=== PATIENT | male | born 1985 | race Caucasian/White ===

== ENCOUNTER 2017-02-06 19:58 | Emergency (ER) | payer OTHER ==
[2017-02-06] MEDS ORDERED: LORazepam 2 MG/ML DISP.SYRIN IV ONE (20:08)
[2017-02-06] MEDS ORDERED: LORazepam 2 MG/ML DISP.SYRIN ONE (20:08)
[2017-02-06] MEDS ORDERED: NORMAL SALINE 1,000 ML IV ONE ×2 (20:18→21:49)
[2017-02-06 20:21] LABS: Hematocrit 43.4 % (42.0-52.0); Hemoglobin 15.4 gm/dL (13.5-18.0); Mean Cell Volume 80.4 fl (78-100); Mean Corpuscular Hemoglobin 28.5 pg (27-31); Mean Corpuscular Hgb Conc 35.5 g/dl (32-36); Mean Platelet Volume 9.1 fl (6.0-9.5); Neutrophil # 9.5 K/mm3 (1.3-6.0); Neutrophil % 69.5 % (42-75.0); Platelet Count 381 K/mm3 (150-450); Red Cell Distribution Width 11.2 % (11.5-14.0); White Blood Count 13.7 K/mm3 (4.0-10.5)
--- NOTE | 2017-02-06 20:33 | ERNOTE ---
Psychological HPI - General Chief Complaint: Drug Overdose Source: Reports: patient, family, RN notes reviewed Exam Limitations: Reports: clinical condition - Immun/Allergies/Home Medications Allergies/Adverse Reactions: Allergies Penicillins Allergy (Verified 02/06/17 20:00) Home Medications: HOME MEDICATIONS NK [No Home Medication] 02/06/17 [Last Taken Unknown] - History of Present Illness Narrative: Patient states that he uses meth regularly, got a new batch yesterday from a different dealer, and has used it multiple times, like 7 times today so far. He is experiencing intense back pain and lower extremity pain. He is tachycardic, tachypneic and very restless. He was brought here by his father. Time Seen by Provider: 02/06/17 20:03 Arrived by: Reports: private car, called by spouse/family Onset/duration: Reports: constant Mechanism: Reports: overdose Situational Problems: Reports: other - drug abuse Associated Symptoms: Reports: other - pain Review of Systems - Review of Systems Constitutional: Absent: recent illness, fever, chills EYE: Present: no symptoms reported ENT: Absent: ear pain, sore throat Respiratory: Absent: shortness of breath, cough Gastrointestinal/Abdominal: Absent: nausea, vomiting, diarrhea, abdominal pain Genitourinary: Present: no symptoms reported Musculoskeletal: Present: back pain, muscle pain, muscle stiffness Skin: Present: no symptoms reported Neurological: Present: no symptoms reported Endocrine: Present: no symptoms reported Hematologic/Lymphatic: Present: no symptoms reported Psych: Present: anxiety, depressed - Patient's Past Medical History Patient History - Medical: No pertinent hx, Other - Methamphetamine abuse, marijuana abuse Patient History - Cardiac/Respiratory: No pertinent hx Patient History - Cancer: No Hx of Cancer Patient History - Surgical Procedures: No surgical history Patient History - Other: None - Social History Living Situations: other - left a long-term house, on the run from the police Abuse History: Hx of Substance Use Smoking Status: Current every day smoker - Immunizations Immunizations Up to Date: - unknown Psychological Exam - Exam General Appearance: Present: wd/wn, severe distress, anxious Head Exam: Present: normal inspection, no evidence of injury Neurological: Present: alert, responds to pain, agitated, anxious Thoughts/Hallucinations: Present: normal thought pattern, no apparent hallucination Behavior/Eye Contact/Speech: Present: cooperative Eye Exam: Normal inspection: bilateral, PERRL: bilateral, EOMI: bilateral Ears, Nose, Throat: Present: normal ENT inspection, normal pharynx Neck: Present: normal inspection, nontender Respiratory: Present: no respiratory distress, normal breath sounds, no accessory muscle use, chest nontender, lungs clear Cardiovascular/Chest: Present: tachycardia Gastrointestinal/Abdominal: Present: normal bowel sounds, nontender, nondistended, soft Male Genitals Exam: Present: normal genitalia Back Exam: Present: normal range of motion Extremity Exam: Present: normal inspection, normal range of motion Skin Exam: Present: normal color, warm/dry ED Progress - Results and Orders Patient's Lab Results:: I have reviewed the patient's lab results. Results and Orders: Lactic acid 6.1, WBC 13.7 23:40. Repeat Lactic acid is 0.8. - Vital Signs Patient's Vital Signs:: I have reviewed the patient's vital signs. Vital Signs: Vital Signs 02/06/17 20:00 Temperature 37.1 C Pulse Rate 147 H Respiratory 30 H Rate Blood Pressure 135/119 - EKG EKG: supraventricular tachycardia EKG read: Interp. by me - X-Ray X-Ray #1 X-Ray: chest Interpretation: Interp. by me X-ray Comments: Mild-moderate hyperexpansion, no cardiomegaly, no infiltrates noted. - Progress/Reassessment Chief Complaint: Drug Overdose Progress:: Improved Progress Note-Subjective: 02/06/17 23:41 Police are here waiting for the patient to be cleared. Second lactic acid is 0.8 , blood pressure is good. Patient still restless, but is coming down off of meth. He is able to hold an intelligent conversation. There is a warrant for his arrest, so going with the police is not an "option". I discussed with the patient that he would be going with the police, he verbalized that he thought that was what was going to happen. Plan - Plan Plan: Patient's father is here, he called the police to have them come poultry picking machine tender the patient on release from this ED. Police are here now, will be here until we can release the patient. Departure Clinical Impression: Methamphetamine abuse - Departure Disposition: Long Term Condition: Stable Instructions: Finding Treatment for Addiction, Stimulant Use Disorder- Methamphetamines Additional Instructions: in 3-5 days. Or see the physician/provider for the group home. Referrals: Family Practice [Provider Group]
[2017-02-06 20:38] LABS: ALT 45 U/L (19-67); AST 103 U/L (0-48); Albumin * 4.5 gm/dl (3.4-5.0); Alkaline Phosphatase * 77 U/L (50-170); Anion Gap 20.8 mmol/L (6.8-13.8); BUN/Creatinine Ratio 12.7 (9.0-21.6); Bilirubin, Total 1.2 mg/dL (0.0-1.1); Blood Urea Nitrogen 21 mg/dL (6-23); Ca. Corrected For Albumin 9.1 mg/dL (8.4-10.2); Calcium * 9.8 mg/dL (7.9-10.9); Carbon Dioxide 23.2 mmol/L (24-32.6); Chloride 101 mmol/L (97-106); Glucose * 108 mg/dL (70-110); Sodium 141 mmol/L (132-142); Total Protein 8.3 gm/dL (6.2-8.2)
[2017-02-06 20:43] LABS: Troponin I Less than 0.017 ng/ml (0.00-0.10)
[2017-02-06 21:42] LABS: Urine Appearance Clear; Urine Bilirubin Negative (NEGATIVE); Urine Color Dark Yellow; Urine Ketone 15 mg/dL (NEGATIVE)
[2017-02-06 21:43] LABS: Urine Bacteria None Seen; Urine Blood 25 /ul (NEGATIVE); Urine Nitrite Negative (NEGATIVE); Urine Protein 30 mg/dL (NEGATIVE); Urine RBC 0-5 /hpf (0-5); Urine Specific Gravity 1.025 SP.GR. (1.005-1.030); Urine Urobilinogen Normal (NORMAL); Urine WBC None Seen /hpf (0-5)
[2017-02-06 21:46] LABS: Cocaine Ur Negative (NEGATIVE); Urine Barbiturate Negative (NEGATIVE); Urine Benzodiazepines Negative (NEGATIVE); Urine Opiates Negative (NEGATIVE); Urine PCP Negative (NEGATIVE); Urine THC Positive (NEGATIVE)
[2017-02-06 23:42] VITALS: BP 112/54
== END 2017-02-06 23:54 ==
LOC: ER 19:58
DX: F15.10 Other stimulant abuse, uncomplicated (principal); F17.200 Nicotine dependence, unspecified, uncomplicated